=== PATIENT | female | born 1945 | race Caucasian/White ===

== ENCOUNTER 2018-10-15 15:49 | Emergency (ER) | payer SELFPAY ==
[~2018-10-15] VITALS: Ht 172.7 cm; Wt 81.7 kg
[2018-10-15] MEDS ORDERED: Cerefolin Tabl1 EACH PO (16:07)
[2018-10-15] MEDS ORDERED: SIMV10 PO (16:07)
[2018-10-15] MEDS ORDERED: Norco 5-325 Ta1 EACH (16:07)
[2018-10-15] MEDS ORDERED: Lisinopril2.5 MG PO (16:08)
[2018-10-15] MEDS ORDERED: ASPI81CH PO (16:08)
== END 2018-10-15 19:10 | disposition home or self-care (01) ==
LOC: ER 15:49
DX: S82.145A Nondisplaced bicondylar fracture of left tibia, initial encounter for closed fracture (principal); I10 Essential (primary) hypertension; R73.03 Prediabetes; I25.10 Atherosclerotic heart disease of native coronary artery without angina pectoris; M19.90 Unspecified osteoarthritis, unspecified site; Z95.1 Presence of aortocoronary bypass graft; Z79.82 Long term (current) use of aspirin; Z79.899 Other long term (current) drug therapy; W19.XXXA Unspecified fall, initial encounter
CPT/HCPCS: 29505; 73562-LT; 73700; 99284-25